=== PATIENT | female | born 1970 | race Caucasian/White ===

== ENCOUNTER 2016-09-21 08:30 | Outpatient (RCR) | payer OTHER ==
--- OUTSIDE RECORDS SUMMARY | 2016-08-03 09:50 | XMS REPORT | Continuity of Care Document ---
Author Author [facility] Organization [facility] Address Unknown Phone Unavailable Care Team Providers Care Interactive Video Technician Name Role Phone PCP Unavailable Source Comments Some departments are not documenting in the electronic medical record. If you do not see the information that you expected, contact Release of Information in the Health Information Management department at [phone] for further assistance in locating additional records.[facility] Active Allergies and Adverse Reactions Not on File Current Medications Not on file Active Problems Not on file Social History Tobacco Use Types Packs/Day Years Used Date Never Assessed Plan of Care Health Maintenance Due Date Last Done Comments Physical (Comprehensive) 1979 Exam Pertussis Vaccine 1983 Tetanus Vaccine 1989 Cervical Cancer Screening 1993 Influenza Vaccine 03/31/2016 Results from Last 3 Months Not on file
[~2016-09-21 08:30] MED LIST: BUPR100T6 PO; DIAZ-345 PO; FLAX100031 PO; METH4TAB PO; PRED-501 PO; TRAM-21 PO
== END 2016-09-21 13:48 | disposition home or self-care (01) ==
DX: M54.16 Radiculopathy, lumbar region (principal)

== ENCOUNTER → 2016-11-10 | Outpatient (CLI) | payer OTHER ==
--- NOTE | 2016-11-10 20:52 | Diagnostic Imaging Report ---
Right breast diagnostic mammogram. INDICATION: Followup asymmetry along the inferior aspect of the right breast. The current study was also evaluated with a Computer Aided Detection (CAD) system. FINDINGS: The right breast is composed of extremely dense parenchyma which would decrease mammographic sensitivity. Asymmetric increased density area in the inferior aspect of the right breast is similar to the prior study with no significant change. Previous ultrasound was negative. This is likely related to summation artifact of parenchyma. IMPRESSION: No adverse development with increased density asymmetry in the lower aspect of the right breast favored to be summation artifact of parenchyma. Another followup when the patient is due for her bilateral mammogram in March 2017 is recommended to ensure further stability. ACR BI-RADS Category 3: Probably benign findings. Result letter will be mailed to the patient. Note: At least 10% of breast cancer is not imaged by mammography. Dictated by: Dictated on workstation # [id number]
== END ==
LOC: RAD 08:19
PROVIDERS: ATTEND Obstetrics & Gynecology
DX: R92.8 Other abnormal and inconclusive findings on diagnostic imaging of breast (principal)